=== PATIENT | male | born 1955 | race Hispanic/Latino ===

== ENCOUNTER 2019-07-20 17:48 | Observation (INO) | payer BC, OTHER ==
[~2019-07-20] VITALS: Ht 172.7 cm; Wt 74.8 kg
[2019-07-20] MEDS ORDERED: HYOSCYAMINE SULFATE 0.125 MG TAB.SUBL SL ONE (18:48)
[2019-07-20 18:52] LABS: BASOPHILS % (AUTO) 0.2 % (0.0-5.0); EOSINOPHILS % (AUTO) 0.6 % (0.0-8.0); HEMATOCRIT 40.9 % (42-54); LYMPHOCYTES % (AUTO) 3.4 % (21.0-51.0); MEAN CORPUSCULAR HEMOGLOBIN 30.9 pg (27.0-33.0); MEAN CORPUSCULAR HGB CONC 33.7 g/dL (32.0-36.0); MEAN CORPUSCULAR VOLUME 91.5 fL (79-99); MONOCYTES % (AUTO) 3.6 % (3.0-13.0); NEUTROPHILS % (AUTO) 91.6 % (40.0-77.0); PLATELET COUNT (AUTO) 218 K/uL (130-400); RED BLOOD CELL COUNT(AUTO) 4.47 MIL/uL (4.50-6.20); RED CELL DISTRIBUTION WIDTH 12.1 % (11.0-15.5)
[2019-07-20 19:10] LABS: APPEARANCE,URINE Clear (CLEAR); BILIRUBIN,URINE Negative (NEGATIVE); COLOR,URINE Yellow (YELLOW); GLUCOSE, URINE (UA) Negative (NEGATIVE); KETONES,URINE >=80 mg/dL (NEGATIVE); LEUKOCYTE ESTERASE ,URINE Negative (NEGATIVE); NITRATE,URINE Negative (NEGATIVE); OCCULT BLOOD,URINE Negative (NEGATIVE); PROTEIN,URINE Negative (NEGATIVE); UROBILINOGEN,URINE 0.2 mg/dL (0.2-1.0)
[2019-07-20 19:10] LABS: INR 0.92 (0.85-1.15); PARTIAL THROMBOPLASTIN TIME 26.9 SEC (26.3-35.5)
[2019-07-20] MEDS ORDERED: METRONIDAZOLE 500 MG TABLET ONE (19:33)
[2019-07-20] MEDS ORDERED: ACETAMINOPHEN EXTRA STRENGTH 500 MG TABLET ONE (19:33)
[2019-07-20] MEDS ORDERED: LEVOFLOXACIN 500 MG/D5W 100 ML 100 ML ONE (19:33)
[2019-07-20] MEDS: METRONIDAZOLE 500MG/100ML BAG 100 ML IVPB SCH (20:00)
[2019-07-20 20:08] LABS: CREATININE 0.8 mg/dL (0.5-1.5); POTASSIUM 3.9 mmol/L (3.5-5.1)
[2019-07-20 20:12] LABS: ALBUMIN 4.2 g/dL (3.5-5.0); TOTAL PROTEIN, SERUM 7.2 g/dL (6.0-8.3)
[2019-07-20] MEDS ORDERED: ONDANSETRON HCL 4 MG/2 ML VIAL IVP PRN (20:15)
[2019-07-20 22:00] VITALS: BP 127/79
--- NOTE | 2019-07-20 22:00 | NUR ---
Admission note: Admitted to floor via stretcher. Amb indep. Fully awake and responsive. VS checked and recorded. Assessment done. ( See full assessment at [facility] flow chart) Plan of care initiated. Oriented to room and used of call light. Policies and procedures explained. Agreed and verbalized understanding. Monitored for any unusualities. Needs attended. No apparent distress noted. No pain at this time.
[2019-07-20] MEDS: HYDROMORPHONE 1 MG/1 ML AMP IVP PRN (23:37)
[2019-07-20 23:42] VITALS: BP 127/79
[2019-07-20] MEDS ORDERED: LISI10TA7 PO (23:43)
[2019-07-21] MEDS ORDERED: ONDANSETRON HCL 4 MG/2 ML VIAL IVP PRN (00:30)
[2019-07-21] MEDS: SODIUM CHLORIDE 0.9% 1000ML 1,000 ML IV SCH ×2 (00:51→13:06)
[2019-07-21] MEDS: METRONIDAZOLE 500MG/100ML BAG 100 ML IVPB SCH ×3 (03:31→19:50)
[2019-07-21] MEDS: HYDROMORPHONE 1 MG/1 ML AMP IVP PRN ×4 (03:32→20:33)
[2019-07-21 04:30] VITALS: BP 124/68
[2019-07-21 07:34] VITALS: BP 130/80
[2019-07-21 10:54] VITALS: BP 129/72
--- NOTE | 2019-07-21 12:48 | NUR ---
Left message for Dr. Gaffney regarding results of CT Scan on mobile phone. Pending call back or response.
--- NOTE | 2019-07-21 13:14 | NUR ---
Called Dr. Schmitt's office to notify of consult and to review CT Scan results with him. Left message with Shar at Dr. Schmitt's office and Dr. Oskar charlton.
[2019-07-21 15:23] VITALS: BP 141/73
[2019-07-21] MEDS: LEVOFLOXACIN 500 MG/D5W 100 ML 100 ML IV SCH (18:00)
[2019-07-21 19:00] VITALS: BP 125/79
[2019-07-21 23:00] VITALS: BP 121/66
[2019-07-22 03:00] VITALS: BP 125/76
[2019-07-22] MEDS: HYDROMORPHONE 1 MG/1 ML AMP IVP PRN (03:16)
[2019-07-22] MEDS: SODIUM CHLORIDE 0.9% 1000ML 1,000 ML IV SCH ×2 (03:17→16:37)
[2019-07-22] MEDS: METRONIDAZOLE 500MG/100ML BAG 100 ML IVPB SCH ×3 (03:18→20:44)
[2019-07-22 07:30] VITALS: BP 119/78
[2019-07-22] MEDS: LISINOPRIL 10 MG TABLET PO SCH (09:00)
[2019-07-22 11:00] VITALS: BP 149/93
[2019-07-22 14:24] LABS: HEMATOCRIT 35.7 % (42-54); MEAN CORPUSCULAR HGB CONC 33.3 g/dL (32.0-36.0); RED BLOOD CELL COUNT(AUTO) 3.84 MIL/uL (4.50-6.20); RED CELL DISTRIBUTION WIDTH 12.2 % (11.0-15.5); WHITE BLOOD COUNT (AUTO) 9.3 K/uL (4.8-10.8)
[2019-07-22 14:45] LABS: ALBUMIN 3.2 g/dL (3.5-5.0); BILIRUBIN,TOTAL 0.6 mg/dL (0.2-1.0); CREATININE 0.7 mg/dL (0.5-1.5); POTASSIUM 3.9 mmol/L (3.5-5.1); TOTAL PROTEIN, SERUM 6.4 g/dL (6.0-8.3)
[2019-07-22 16:00] VITALS: BP 136/98
[2019-07-22] MEDS: LEVOFLOXACIN 500 MG/D5W 100 ML 100 ML IV SCH (18:03)
[2019-07-22 20:08] VITALS: BP 144/84
[2019-07-23 00:12] VITALS: BP 148/80
[2019-07-23] MEDS: METRONIDAZOLE 500MG/100ML BAG 100 ML IVPB SCH (03:50)
[2019-07-23 04:16] VITALS: BP 137/79
[2019-07-23 07:30] VITALS: BP 153/89
[2019-07-23] MEDS: LISINOPRIL 10 MG TABLET PO SCH (08:30)
[2019-07-23] MEDS: SODIUM CHLORIDE 0.9% 1000ML 1,000 ML IV SCH (08:30)
--- NOTE | 2019-07-23 11:00 | NUR ---
PATIENT DISCHARGED PATIENT DISCHARGED, IV DISCONTINUED, CATHLON INTACT, BLEEDING CONTROLLED, PATIENT TOLERATED WITHOUT INCIDENT. DISCUSSED PRESCRIPTIONS TO BE FILLED AT [facility], AND FOR HIM TO SCHEDULE FOLLOW UP APPOINTMENTS WITH DR. HDZ AND DR. GIORDANO IN ONE WEEK. PATIENT STATED HE UNDERSTOOD.
== END 2019-07-23 11:00 | disposition home or self-care (01) ==
LOC: EDH 17:48 → EDHIP 17:49 → 3DH 20:47
PROVIDERS: ADMIT Internal Medicine; ATTEND Internal Medicine
DX: K91.89 Other postprocedural complications and disorders of digestive system (principal); K57.92 Diverticulitis of intestine, part unspecified, without perforation or abscess without bleeding; E87.1 Hypo-osmolality and hyponatremia; I10 Essential (primary) hypertension; Z87.19 Personal history of other diseases of the digestive system; Z87.891 Personal history of nicotine dependence; Y83.8 Other surgical procedures as the cause of abnormal reaction of the patient, or of later complication, without mention of misadventure at the time of the procedure
CPT/HCPCS: 36415 ×2; 71045; 74176; 80053 ×2; 81003; 82150; 82550; 83605; 83690; 84484; 85025; 85027; 85610; 85730; 87040 ×2; 87804 ×2; 93005; 96365; 96366 ×3; 96367; 96375; 96376 ×2; 99285; G0378 ×8; J1170 ×6; J1956 ×4; J3490 ×7; J7030

== ENCOUNTER 2019-08-19 19:37 | Emergency (ER) | payer OTHER ==
[~2019-08-19 19:37] MED LIST: LISI10TA7 PO
[2019-08-19] MEDS ORDERED: KETOROLAC TROMETHAMINE 30MG/ML ONE (20:09)
== END 2019-08-19 22:22 | disposition home or self-care (01) ==
LOC: EDH 19:37
DX: S46.911A Strain of unspecified muscle, fascia and tendon at shoulder and upper arm level, right arm, initial encounter (principal); I10 Essential (primary) hypertension; Z87.891 Personal history of nicotine dependence; X58.XXXA Exposure to other specified factors, initial encounter; Y93.89 Activity, other specified; Y92.89 Other specified places as the place of occurrence of the external cause; Y99.8 Other external cause status
CPT/HCPCS: 73030; 96372; 99283; J1885

== ENCOUNTER 2023-09-08 06:23 | Day surgery (SDC) | payer OTHER ==
[2023-09-03 14:04] VITALS: BP 135/73; PULSE 66; RESP 18
[2023-09-03 14:05] LABS: BASOPHILS # (AUTO) 0.04 K/uL (0.00-0.20); BASOPHILS % (AUTO) 0.6 % (0.0-5.0); EOSINOPHILS # (AUTO) 0.04 K/uL (0.00-0.70); EOSINOPHILS % (AUTO) 0.6 % (0.0-8.0); HEMATOCRIT 38.9 % (42-54); IMMATURE GRANULOCYTE ABSOLUTE 0.02 K/uL (0-1); LYMPHOCYTES # (AUTO) 1.7 K/uL (1.0-4.8); LYMPHOCYTES % (AUTO) 26.9 % (21.0-51.0); MEAN CORPUSCULAR HEMOGLOBIN 31.2 pg (27.0-33.0); MEAN CORPUSCULAR HGB CONC 33.2 g/dL (32.0-36.0); MONOCYTES # (AUTO) 0.6 K/uL (0.1-1.0); MONOCYTES % (AUTO) 8.7 % (3.0-13.0); NEUTROPHILS # (AUTO) 4.1 K/uL (1.8-7.7); NEUTROPHILS % (AUTO) 62.9 % (40.0-77.0); PLATELET COUNT (AUTO) 206 K/uL (130-400); RED BLOOD CELL COUNT(AUTO) 4.14 MIL/uL (4.50-6.20); RED CELL DISTRIBUTION WIDTH 13.1 % (11.0-15.5); WHITE BLOOD COUNT (AUTO) 6.4 K/uL (4.8-10.8)
[2023-09-03 14:08] LABS: CREATININE 0.7 mg/dL (0.5-1.3); POTASSIUM 4.1 mmol/L (3.5-5.1)
[2023-09-03 14:11] LABS: INR <= 0.93 (0.85-1.15); PROTHROMBIN TIME 10.7 SEC (9.6-11.6)
[2023-09-03 14:12] LABS: PARTIAL THROMBOPLASTIN TIME 28.5 SEC (26.3-35.5)
[2023-09-08] VITALS (14 sets, daily range): BP systolic 118–132; BP diastolic 56–75; PULSE 54–64; RESP 14–19
[~2023-09-08] VITALS: Ht 172.7 cm; Wt 77.2 kg
[~2023-09-08 06:23] MED LIST changes: +LISI10TA24 PO; -LISI10TA7 PO; +PANT40TA54 PO
[2023-09-08] MEDS ORDERED: ACETAMINOPHEN 1,000 MG/100 ML VIAL IV ONE (06:52)
[2023-09-08] MEDS ORDERED: FAMOTIDINE 20MG VIAL IV ONE (06:52)
[2023-09-08] MEDS ORDERED: LIDOCAINE PF 100MG/5ML (2%) SYRINGE 5ML ONE (06:55)
[2023-09-08] MEDS ORDERED: FENTANYL CITRATE PF 50 MCG/1 ML 2ML VIAL ONE (06:55)
[2023-09-08] MEDS ORDERED: PROPOFOL 10 MG/ML 20ML VIAL IV ONE (06:55)
[2023-09-08] MEDS: LACTATED RINGERS 1000ML 1,000 ML IV ONE (07:10)
[2023-09-08] MEDS: CEFAZOLIN SODIUM 2 GM VIAL ONE (07:10)
[2023-09-08] MEDS ORDERED: DEXAMETHASONE SOD PHOSPHATE 10MG/ML 1ML VIAL ONE (07:22)
[2023-09-08] MEDS ORDERED: ONDANSETRON 4MG INJ ONE (07:22)
[2023-09-08] MEDS ORDERED: EPHEDRINE SULFATE 50 MG/ML AMPULE ONE (07:24)
[2023-09-08] MEDS: BUPIVACAINE/PF 0.25% 30ML VIAL IJ ONE (07:31)
[2023-09-08] MEDS ORDERED: DOCU-116 PO (07:42)
[2023-09-08] MEDS ORDERED: TRAM50TA4 PO (07:42)
== END 2023-09-08 09:20 | disposition home or self-care (01) ==
LOC: DAH 06:23
PROVIDERS: ATTEND Surgery
DX: L72.3 Sebaceous cyst (principal); L72.0 Epidermal cyst; I10 Essential (primary) hypertension; E78.5 Hyperlipidemia, unspecified; Z79.01 Long term (current) use of anticoagulants; Z79.899 Other long term (current) drug therapy; Z98.890 Other specified postprocedural states; Z82.49 Family history of ischemic heart disease and other diseases of the circulatory system; Z88.0 Allergy status to penicillin
CPT/HCPCS: 80048; 85025; 85610; 85730; 86850 ×2; 86900 ×2; 86901 ×2; 36415 ×2; 93005; 11402; 88305; A6260; J0665; A4663; A4452; J7120; J3490 ×2; J3010; J1100; J2001; J2704; J2405; J0690; A4930; A4215; A4223; A4222; A4221; A4600; G0168

== ENCOUNTER → 2023-10-27 | Outpatient (CLI) | payer OTHER ==
[~2023-10-27] MED LIST changes: +DOCU-116 PO; +TRAM50TA4 PO
[2023-10-27] MEDS: REGADENOSON 0.4 MG/5 ML PF SYG IVP ONE (14:18)
== END | disposition home or self-care (01) ==
LOC: SHCH 07:56
PROVIDERS: ATTEND Internal Medicine Cardiovascular Disease
DX: I45.10 Unspecified right bundle-branch block (principal); I25.10 Atherosclerotic heart disease of native coronary artery without angina pectoris
CPT/HCPCS: 78452; 96374; 93017; J2785; A9500 ×2

== ENCOUNTER → 2023-11-05 | Outpatient (CLI) | payer OTHER | END | disposition home or self-care (01) | LOC: SHCH 08:07 | PROVIDERS: ATTEND Internal Medicine Cardiovascular Disease | DX: I25.10 Atherosclerotic heart disease of native coronary artery without angina pectoris (principal) | CPT/HCPCS: 93306 ==

== ENCOUNTER 2024-07-27 23:29 | Emergency (ER) | payer OTHER ==
[~2024-07-27] VITALS: Ht 172.7 cm; Wt 80.7 kg
[~2024-07-27 23:29] MED LIST changes: +CYAN-106 PO; -DOCU-116 PO; -PANT40TA54 PO; -TRAM50TA4 PO
--- NOTE | 2024-07-27 23:49 | NUR ---
PT CARE ASSUMED AT THIS TIME
[2024-07-27 23:57] VITALS: BP 107/62; PULSE 70; RESP 17; TEMP 97.2; O2SAT 99
--- NOTE | 2024-07-28 00:03 | ERN ---
General Chief Complaint: Numbness Stated Complaint: C/O TINGLING TO HANDS, "NOT FEELING RIGHT" Time Seen by MD: 23:40 History of Present Illness Initial Comments Mr Lofton is a 69-year-old male comes in with a history of hypertension presents with the acute bilateral hand tingling in a vague sensation of anxiety. Patient begin did have symptoms 1-2 hours prior to arrival while attempting to fall asleep. He reports no associated chest pain palpitations shortness of breath or dizziness. He denies any recent stressors personal losses or financial issues. He denies any history of anxiety or panic attacks he has no history of substance abuse reported. Patient attempt to go to a local urgent care but it was found to be close and came to the ER for evaluation. He he remains hemodynamically stable and calm at bedside he reports tingling has improved slightly but is still present. Patient declines any medication at this time feels comfortable going home. Request to follow up with the [facility] provider for further evaluation Allergies: Coded Allergies: No Known Allergies (Verified Allergy, Unknown, 07/20/19) Home Meds Reported Medications Cyanocobalamin (Vitamin B-12) (Vitamin B12) 1,000 Mcg Tablet, 1000 MCG PO DAILY, TAB 05/14/24 Lisinopril (Lisinopril) 10 Mg Tablet, 10 MG PO DAILY, TAB 07/20/19 Past Medical History Past Medical History: Hypertension Past Surgical History: Other Surgical History Other: HERNIA REPAIR Family History Family History: Negative ROS Dictation Constitutional: Negative for fever,chills, and weight loss Eyes: Negative for injury, pain,redness, and discharge ENT: Negative for injury,pain or swelling Cardiovascular: Negative for chest pain, palpitations, and edema Respiratory: Negative for shortness of breath, cough, and wheezing, Abdomen/GI: Negative for abdominal pain, nausea, vomiting, diarrhea, and constip ation Back: Negative for injury and pain : Negative for injury, bleeding and discharge MS/Extremity: Negative for injury and deformity Skin: Negative for rash, and discoloration Neuro: Tingling in the hands Psych: Feels anxious, denies prior diagnosis Physical Exam Physical Exam Dictation General: awake, alert, NAD Head/Face: Normocephalic, atraumatic Eyes: PERRL, EOMI, vision at baseline ENT: oral cavity clear, TMs clear, no signs of infection Neck: Trachea midline, supple, no nuchal rigidity Cardiovascular: RRR, normal S1/S2, No MRGs, no JVD Respiratory: CTAB, no respiratory distress, No rales or wheezes Abdomen: Soft, non-tender, non-distended, normal bowel sounds, no guarding or rebound. Skin: Warm, dry, normal turgor, no rash MS/Extremity: Pulses equal, no cyanosis, neurovascular intact, FROM Neuro: COAx4, GCS 15, strength 5/5, CN 2-12 intact, normal cerebellar exam, normal gait, Psych: Anxious affect but appears appropriate good insight MDM Patient appears to have anxiety related paresthesias and generalized anxiety symptoms. Patient at this time does not want any medication or want further evaluation. Patient would like to go home and [facility] Course Vital Signs Date Time Temp Pulse Resp B/P (MAP) Pulse Ox O2 Delivery O2 Flow Rate FiO2 07/27/24 23:32 96.8 76 20 110/64 99 Room Air DX & DISP Disposition: Discharge Departure Impression: Primary Impression: Generalized anxiety disorder Condition: Stable Additional Instructions: Please follow up with your primary care physician/[facility] provider to help with your issues Referrals: SIERRA HDZ MD (PCP) CARRIE SALAMANCA MD July 28, 2024 00:03
== END 2024-07-28 00:03 | disposition home or self-care (01) ==
LOC: EDH 23:29
DX: F41.1 Generalized anxiety disorder (principal); I10 Essential (primary) hypertension; Z79.899 Other long term (current) drug therapy; Z98.890 Other specified postprocedural states
CPT/HCPCS: 99281